=== PATIENT | female | born 1990 | race Two or more races ===

== ENCOUNTER 2025-08-06 08:00 | Day surgery (SDC) | payer OTHER ==
[2025-07-30 13:42] VITALS: BP 111/74
[~2025-08-06] VITALS: Ht 157.5 cm; Wt 73.5 kg
[~2025-08-06 08:00] MED LIST: HORIZANT300 MG PO
[2025-08-06] MEDS ORDERED: ONDANSETRON HCL 2 MG/ML VIAL IV ONE (13:15)
[2025-08-06] MEDS ORDERED: KETOROLAC TROMETHAMINE 60 MG VIAL IM ONE ×2 (13:15→16:39)
[2025-08-06] MEDS ORDERED: ONDANSETRON HCL 2 MG/ML VIAL ONE (14:19)
== END 2025-08-06 17:40 | disposition home or self-care (01) ==
LOC: CIR.AMB 08:00
PROVIDERS: ATTEND Obstetrics & Gynecology
DX: N84.0 Polyp of corpus uteri (principal); N93.8 Other specified abnormal uterine and vaginal bleeding; Z91.013 Allergy to seafood